=== PATIENT | male | born 1955 | race Caucasian/White ===

== ENCOUNTER → 2017-01-27 | Outpatient (CLI) | payer OTHER ==
[~2017-01-27] VITALS: Ht 177.8 cm; Wt 143.2 kg
[~2017-01-27] MED LIST: ALPRAZOLAM 0.50.5 MG PO; ASPIRIN325 PO; COLACE 100 MG100 MG PO; FISH OIL 1,001000 M2 PO; IMDUR 60 MG TAB60 M1 PO; LISINOPRIL20 MG PO; LIVALO4 MG PO; METAMUCIL PAC1 UDPKT PO; NEURONTIN 300300 M1 PO; NITROGLYCERIN0.4 MG SUBLING; NORVASC5 MG PO; PLAVIX 75 MG TA75 M1 PO; PROTONIX40 M1 PO; TRAMADOL 50 MG50 MG PO; VENTOLIN HFA 1818 GM INH; WELLBUTRIN XL300 MG PO
--- NOTE | ~2017-01-27 | HPC ---
[facility] [place] [address] PAIN MANAGEMENT CONSULTATION Name: ALONDRA SHAY Room #: [id number] Admission: 01/27/17 Attend Phys: Maximo Wheat DO Discharge: Date of : 55 Report #: [id number] THIS REPORT FOR: //name// CC: Raf Wheat The patient is a 61-year-old gentleman, seen in consultation at the request of Dr. Santiago for assistance with management of pain, low back, and left posterior thigh to foot. The patient notes he had fallen in 2010, suffering initial back injury, as well as a right ACL tear. Ultimately, this resolved. He has had some chronic radicular back pain. This past July, he has fell on stairs with acute exacerbation of low back and left leg pain. Since that time, he has tried Tylenol, gabapentin, and tramadol with moderate efficacy. He uses a cane in his right hand (which he has since an SC in September of 2011). He notes the pain currently is exacerbated with sitting or lying down, nothing in particular seems to be making it better. He describes pain that is continuous, shooting, and crushing, rates it at 9 on a 0-10 visual analog scale. Notes no specific weakness, saddle anesthesia, nor bowel or bladder continence changes, but does, however, have paresthesia in the leg. REVIEW OF SYSTEMS: Complete review of systems was attached to the chart, was gone over with the patient. He is , does not smoke or drink alcohol to excess. History of reactive airway disease for which he uses Ventolin metered dose inhaler, hypertension, treated with lisinopril, metoprolol, and amlodipine, significant coronary artery disease, status post three endovascular stents, last coronary artery stenting was in April of 2013. He is on Plavix for this, so he has held it for 10 days prior to today's presentation. He also uses nitroglycerin sublingual. He had a TIA in September of 2009 and had dysarthria and some right hemiparesis. All symptoms have resolved except for some right index finger paresthesia. He has gastroesophageal reflux for which he takes pantoprazole. He has chronic anxiety and depression. He is on multiple central acting agents, including bupropion, escitalopram, Xanax, and Elavil. As noted in chief complaint, for pain, he takes gabapentin, tramadol and pndg-[id number]-[id number] Tylenol. PAST SURGICAL HISTORY: Reviewed, vasectomy in 1979, carpal tunnel surgery in 1999, and cholecystectomy and some skin cancer was removed in 2011. He works as a computer drafter, continues to work despite pain. He has been off "a few days". Pain impact score is quite high at 60/70 points. PHYSICAL EXAMINATION: Reveals an obese, 5 feet 10 inches, 315 pound gentleman, [address] [address] PAIN MANAGEMENT CONSULTATION Name: ALONDRA SHAY Room #: REG LILIAN Alexis#: [id number] Admission: 01/27/17 Attend Phys: Maximo Wheat DO Discharge: Date of : 55 Report #: [id number] BMI is 45.3 kilograms per meter squared. Blood pressure is 128/79, pulse 74, respirations 18. Cranial nerves 2-12 are grossly intact. HEENT: Pupils are equal and reactive to light and accommodation. Extraocular muscles are intact. NECK: Thyroid is modestly enlarged, though he has somewhat of a "bull" neck. EXTREMITIES: Upper extremity strength is generally preserved. Again, a little decrease in subjective 2-point discrimination and flexion strength in the right index finger. Otherwise, upper extremity neurologic exam is unremarkable. HEART: Regular and rhythmical without murmur. LUNGS: Show distant heart sound. ABDOMEN: He has a significant endomorphic build, with a fairly large pannus. MUSCULOSKELETAL: Mildly antalgic gait. Uses a cane favors his left leg and has difficultly walking on his left toe. Left hip flexion strength is diminished about 3-4/5. Left lower extremity extension strength is diminished to about 3-4/5. All other muscle groups are 4-5/5 on objective testing, including all the muscles of the right leg. Straight leg raise is grossly positive at 30 degrees in the left. Patellar reflex is about 2/4 and symmetric. Achilles reflexes diminished on the left compared to the right. Skin integument is generally intact. DIAGNOSTIC STUDIES: We reviewed diagnostic studies including MRI of the lumbar spine from 01/01/2017 noting L3-L4 to have moderate effacement of the thecal sac with crowding of the nerve roots. Moderate left and moderate to severe right neural foraminal stenosis. This is contralateral to the patient's primary pain which is more in the left L5 distribution. L4-L5 does note mild right and moderate to severe left lateral recess stenosis. L5-S1; however, I believe is the primary pathology with an eccentric to the left disk bulging and moderate to severe left neural foraminal stenosis. ASSESSMENT: Symptomatic lumbar radiculopathy in the left L5 radicular pattern, collaborated with diagnostic findings (MRI) , physical exam (positive neuro-tensioning sign), having failed conservative therapy, including exercise and analgesics. The patient is intolerant of nonsteroidal anti-inflammatory agents due to coronary artery disease and concurrent Plavix use. RECOMMENDATIONS: Epidural injection under fluoroscopy at L5-S1 left in midline. The patient has been off Plavix for 10 days. Unfortunately, we have to wait a few more days for his insurance for prior authorization. I suggest he continue with an aspirin daily. We will request a prior authorization for this necessary intervention (lumbar epidural injection under fluoroscopy at L5-S1) at earliest possible date. [address] [address] PAIN MANAGEMENT CONSULTATION Name: ALONDRA SHAY Room #: REG CLKiran Alexis#: [id number] Admission: 01/27/17 Attend Phys: Maximo Wheat DO Discharge: Date of : 55 Report #: [id number] Thank you for allowing me to participate in the patient's care. I will keep you abreast of his progress. <ELECTRONICALLY SIGNED> By: Maximo Wheat DO 01/29/17 0932 [id number] 1600 Maximo Wheat DO /nt
[2017-01-27 13:45] VITALS: BP 128/79
== END ==
LOC: PAIN 07:48
DX: M54.16 Radiculopathy, lumbar region (principal); I10 Essential (primary) hypertension; I25.10 Atherosclerotic heart disease of native coronary artery without angina pectoris; K21.9 Gastro-esophageal reflux disease without esophagitis; F41.8 Other specified anxiety disorders

== ENCOUNTER → 2017-01-30 | Outpatient (CLI) | payer OTHER ==
[~2017-01-30] VITALS: Ht 177.8 cm; Wt 144.1 kg
[2017-01-30 13:18] VITALS: BP 109/74
== END ==
LOC: PAIN 08:06
DX: M54.16 Radiculopathy, lumbar region (principal); I10 Essential (primary) hypertension

== ENCOUNTER → 2017-02-20 | Outpatient (CLI) | payer OTHER ==
[~2017-02-20] VITALS: Ht 177.8 cm; Wt 140.8 kg
--- NOTE | ~2017-02-20 | HPC ---
[facility] [address] [address] PAIN MANAGEMENT CONSULTATION Name: ALONDRA SHAY Room #: REG Kiran Givens.#: [id number] Admission: 02/20/17 Attend Phys: Maximo Wheat DO Discharge: Date of : 55 Report #: [id number] THIS REPORT FOR: //name// CC: Raf Wheat HISTORY OF PRESENT ILLNESS: The patient is a 61-year-old gentleman, prior seen in the pain clinic in consultation 01/27/2017 diagnosed with symptomatic lumbar radiculopathy, having failed conservative therapy. The patient was intolerant of antinflammatory medications due to coronary artery disease and Plavix use. I proceeded with epidural injection at L5-S1 at last visit. He returns to the pain clinic today noting that the radicular component of his pain is actually fairly well improvement, in fact his episodic leg pain has been resolved. He still, however, has ongoing axial back pain that remains quite problematic and is perhaps even a bigger pain concern. The patient was seen today for a prolonged visit from 13:26-13:55. Greater than 50% of this 25 plus minute visit was spent counseling the patient. He notes pain is primarily in the mid to low back, has incidental bilateral knee pain, but this is secondary to DJD. Mid to low back pain is constant, shooting and crushing rates as 7/10, exacerbated with sitting and lying down. Again, the neurogenic component of pain with activity that had been more radicular in nature is quiescent. PHYSICAL EXAMINATION: GENERAL: Shows a 61-year-old gentleman, moderately obese with a BMI of 44.5 kilograms per meter squared. VITAL SIGNS: Blood pressure is modestly elevated 158/96, pulse 77, respirations are 20. NEUROLOGIC: Alert and oriented to person, place and time, judged to be a reasonable historian. Rises from chair using armrest. Gait is tandem. Lower extremity strength is preserved. Straight leg raise is negative. Patellar and Achilles reflexes are diminished, but preserved and symmetric. Does have diffuse tenderness in the lumbar paravertebral muscles, L1-L5. Pain is exacerbated with side bending and rotation. Lumbar flexion is pretty good to about 80 degrees. We again reviewed his MRI from 01/01/2017. He has degenerative changes at the endplates at L3-L4 and L4-L5. There is mild to moderate diffuse disk bulging producing effacement of the thecal sac and crowding of the nerves. The is facet arthropathy noted at this level with severe right neural foraminal narrowing L4-L5 similarly notes moderate bilateral facet arthrosis with severe left neural foraminal narrowing at L5-S1, notes disk bulging eccentric to the left, facet arthropathy and severe left neural foraminal stenosis. [facility] [address] [place] [address] PAIN MANAGEMENT CONSULTATION Name: ALONDRA SHAY Aida Room #: REG LILIAN Alexis#: [id number] Admission: 02/20/17 Attend Phys: Maximo Wheat DO Discharge: Date of : 55 Report #: [id number] ASSESSMENT: 1. Symptomatic lumbar radiculopathy secondary to high grade neural foraminal stenosis, further radicular symptoms are quiescent at present following one epidural injection (midline L5-S1). 2. Chronic exacerbation of lumbar spondylosis and axial back pain. RECOMMENDATION: Long discussion with the patient today about therapeutic options. Ultimately, we have elected to seek authorization for bilateral L3-L4, L4-L5 and L5-S1 facet joint injections under fluoroscopy. If this affords usp relief, i.e., 6-8 weeks, we can consider repeating as needed. If, however, he gets good yet short term relief, we will plan on moving forward with medial branch dorsal rami diagnostic blocks (L2, L3, L4 and L5 bilateral to cover the L3-L4, L4-L5 and L5-S1 facet joints) with a consideration for neurolysis as same if patient does get good predictable and reproducible relief. Thank you for allowing me to participate in the patient's care. ASSESSMENT: Symptomatic lumbar and lumbosacral spondylosis secondary components of axial back pain and lumbar radiculopathy. We will seek authorization for bilateral L3-L4, L4-L5 and L5-S1 facet joint injections under fluoroscopy. Again, the patient is intolerant of nonsteroidal anti-inflammatory medications due to congruent coronary artery disease and Plavix use (the patient will need to be off Plavix for the aforementioned procedure) has failed regular exercise, physical therapy and oral analgesics. By: 1525 0230 Maximo Wheat DO /nt
[2017-02-20 13:22] VITALS: BP 158/96
== END | disposition home or self-care (01) ==
LOC: PAIN 07:05
DX: M47.896 Other spondylosis, lumbar region (principal); G89.29 Other chronic pain; M47.897 Other spondylosis, lumbosacral region; M48.06 Spinal stenosis, lumbar region; M54.9 Dorsalgia, unspecified; M17.0 Bilateral primary osteoarthritis of knee

== ENCOUNTER → 2017-03-14 | Outpatient (CLI) | payer OTHER ==
[~2017-03-14] VITALS: Ht 177.8 cm; Wt 143.3 kg
--- NOTE | ~2017-03-14 | HPC ---
[address] [address] PAIN MANAGEMENT CONSULTATION Name: ALONDRA SHAY Aida Room #: REG [facility] MJimena.#: [id number] Admission: 03/14/17 Attend Phys: Maximo Wheat DO Discharge: Date of : 55 Report #: [id number] THIS REPORT FOR: //name// CC: Raf Wheat SUBJECTIVE: The patient is a 61-year-old gentleman, prior seen in the pain clinic on 02/20/2017. He had been treated for lumbar radicular symptoms, given epidural injection back in January. The epidural injection helped with the radicular component of pain; however, he is having ongoing axial back pain. We discussed therapeutic options at that time. He had significant DJD in the lumbar spine. We reviewed his MRI from 01/01/2017, showing degenerative changes at the endplate at L3-L4 and L4-L5 and mild to moderate diffuse disk bulging producing effacement to the thecal sac. Facet arthropathy was noted at L4-L5 and L5-S1. With axial back pain and lumbar spondylosis, we sought authorization for bilateral L3-L4, L4-L5 and L5-S1 facet joint injections under fluoroscopy. The patient is intolerant of nonsteroidal anti-inflammatory medications due to coronary artery disease and congruent Plavix use. We elected to proceed with facet joint injections under fluoroscopy today. He presents to pain clinic today for these injections. He notes his pain is an 8/10 mid low back, does have some ongoing right radicular and knee pain as well. For assessment of symptomatic lumbar spondylosis, procedures are bilateral facet joint injections under fluoroscopy today. We will monitor efficacy. If he gets significant short-term relief, but no long-term relief from the steroid, we will consider moving forward with medial branch dorsal rami diagnostic block and RFL. If, however, he gets only nominal relief, we will continue to treat radicular symptoms and may have the patient consult with a back surgeon. ASSESSMENT: Symptomatic lumbar spondylosis. PROCEDURE: Bilateral L3-L4, L4-L5 and L5-L6 facet joint injections under fluoroscopy. DESCRIPTION OF PROCEDURE: After written informed consent was obtained, the patient was taken to fluoroscopy suite, placed in prone position. After sterile prep and drape, skin was raised. A 25-gauge stylet needle was placed to contact the inferior aspect of the left L3-L4, L4-L5 and L5-S1 facet joints. AP and lateral projections showed good needle placement, and 30 mg of triamcinolone plus 1 mL of 0.5% preservative-free bupivacaine was injected at each site. All 3 needles removed. C-arm was turned obliquely to the right, and the procedure was repeated. After all six needles removed, the area was cleansed, Band-Aids applied. The patient was allowed to ambulate to the recovery room, monitored for an appropriate period of time. Fluoroscopy time was [address] [address] PAIN MANAGEMENT CONSULTATION Name: ALONDRA SHAY Room #: REG LILIAN Alexis#: [id number] Admission: 03/14/17 Attend Phys: Maximo Wheat DO Discharge: Date of : 55 Report #: [id number] DISPOSITION AND PLAN: The patient was discharged noting some modest improvement of pain, rating his pain as 6/10. He was asked to monitor pain score avidly for the next 4 hours and call that number back to the nurse line. We will see him back in 3 weeks for evaluation again, consider medial branch dorsal rami diagnostic block or move forward with epidural injection under fluoroscopy. <ELECTRONICALLY SIGNED> By: Maximo Wheat DO 03/17/17 0657 [id number] 0032 Maximo Wheat DO /nt
[2017-03-14 13:13] VITALS: BP 143/91
== END | disposition home or self-care (01) ==
LOC: PAIN 06:54
DX: M47.816 Spondylosis without myelopathy or radiculopathy, lumbar region (principal)